=== PATIENT | female | born 1990 | race Caucasian/White ===

== ENCOUNTER 2017-05-02 16:45 | Emergency (ER) | payer BC, OTHER ==
--- NOTE | ~2017-05-02 | ER ---
[facility] AGE: 27 Y [address] ROOM: [place] [id number] LOCATION: [facility] ADMIT DATE: 05/02/2017 ER/Outpatient Report DISCHARGE DATE: 05/02/2017 FAMILY PHYSICIAN: PHYSICIAN, NO ATTENDING PHYSICIAN: Lm Villareal Time of Evaluation: 1705 hours. HISTORY OF PRESENT ILLNESS: The patient is a 27-year-old female, patient of [facility]. The patient states that since February, she has had an intermittent headache, sore throat. The patient said that she has been seen about 3 times for the above complaints. Most recent was yesterday where she was given a shot of Toradol. She has been on a course of amoxicillin and steroids. Sullivan test has been negative as well as her strep. The patient is a [age]-year , but still . ALLERGIES: NO MEDICINAL ALLERGIES. HOME MEDICATIONS: See her copied list, which was reviewed. MEDICAL HISTORY: Includes no previous history of migraines, cluster headaches, or tension headaches. SURGERY: Includes an appendectomy. SOCIAL HISTORY: Nonsmoker. Denies any alcohol. She usually exercises by running, which she has not done for 2 weeks. REVIEW OF SYSTEMS: GENERAL: No fever or chills. HEENT: Includes recurrent headache. It usually starts in the front and a kind of works posteriorly. She has experienced some photophobia with it, nausea. EYES, EARS, NOSE, THROAT: Include second recurrent sore throat, however, strep and mono have been negative. RESPIRATORY: No shortness of breath. No cough. GASTROINTESTINAL: No weight loss, change in bowel habits. NEURO: Denies any numbness, gait problems. PHYSICAL EXAMINATION: [facility] AGE: 27 Y [address] ROOM: [place] [address] LOCATION: [facility] ADMIT DATE: 05/02/2017 ER/Outpatient Report DISCHARGE DATE: 05/02/2017 FAMILY PHYSICIAN: PHYSICIAN, NO ATTENDING PHYSICIAN: Lm Villareal VITAL SIGNS: Her blood pressure is 134/72, her temp is 98.2, her respiratory rate 16, pulse 65, her O2 sats 100%. GENERAL APPEARANCE: A white female. She is alert, but grimacing. HEAD: No exostosis. No temporal tenderness. EYES: Pupils are large but equal, reactive. MOUTH AND THROAT: Oral membranes are moist. There is no redness. Tonsils appear absent. NECK: Supple. There is no adenopathy. LUNGS: Clear. NEURO: Gait appears normal. LABORATORY DATA AND X-RAYS: CT imaging showed normal head CT. There is no presence of any sinus signs or mass effect. ASSESSMENT: Headache, unknown etiology. PLAN/TREATMENT: Dr. Villareal also visited with the patient. We did give her a liter of fluid, 10 of Reglan, 50 of Benadryl. Following the fluids, her headache went from 8 or 9 to 2. The patient was comfortable going home and will follow up with [facility] if it continues to be a problem. We did talk about possibly getting an MRI in the near future. ANDRE VELAZCO FOR MD TAMMI LUNA/[email or web address] /[id number] I have personally evaluated this patient. I agree with the assessment and plan as documented above. Lm Villareal MD d: 05/02/17 2059 t: 05/06/17 0744, OUTPATIENT REPORT
[~2017-05-02 16:45] MED LIST: MOTRIN800 MG; PERCOCET 5-3251 EACH PO; PRENATAL 1+1)(P1 TAB PO; TYLENOL325 MG PO
== END 2017-05-02 18:36 | disposition disaster alternative care site (69) ==
LOC: GMED 16:45
DX: R51 Headache (principal); H53.149 Visual discomfort, unspecified; R11.0 Nausea; Z90.49 Acquired absence of other specified parts of digestive tract; Z79.52 Long term (current) use of systemic steroids; Z79.899 Other long term (current) drug therapy
CPT/HCPCS: J1200; J2765; J7030